=== PATIENT | male | born 1960 ===

== ENCOUNTER 2016-12-30 16:08 | Emergency (ER) | payer BC ==
[2016-12-30] MEDS ORDERED: NO HOME MEDICATION XX (16:19)
[2016-12-30] MEDS ORDERED: OMEPRAZOLE40 M2 PO (16:50)
[2016-12-30] MEDS ORDERED: OLANZAPINE-FLU1 EAC3 PO (16:52)
== END 2016-12-30 18:07 ==
LOC: EDMED 16:08
PROC: 0HQ0XZZ Repair Scalp Skin, External Approach (ICD-10-PCS; principal; 2016-12-30)
DX: S01.01XA Laceration without foreign body of scalp, initial encounter (principal); F10.129 Alcohol abuse with intoxication, unspecified; Y90.7 Blood alcohol level of 200-239 mg/100 ml; E11.9 Type 2 diabetes mellitus without complications; F17.210 Nicotine dependence, cigarettes, uncomplicated; F31.9 Bipolar disorder, unspecified; W10.9XXA Fall (on) (from) unspecified stairs and steps, initial encounter
CPT/HCPCS: G0480; J7030